=== PATIENT | female | born 1975 | race Caucasian/White ===

== ENCOUNTER 2020-01-07 14:29 | Outpatient (CLI) | payer OTHER, SELFPAY ==
--- NOTE | ~2020-01-07 | US_ITS ---
EXAMINATION: US right upper quadrant EXAM DATE: 01/07/2020 15:04 INDICATION: Right upper quadrant pain. TECHNIQUE: Multiple grayscale and Doppler images of the abdomen right upper quadrant were obtained (b y a technologist who performed the scan) and subsequently reviewed. There is no prior study for monique bartholomew. FINDINGS: The pancreatic head and body are normal in appearance. The pancreatic tail is not visualized. The l iver has normal echogenicity and contour. There are no focal liver lesions identified. There is no evidence of intrahepatic biliary duct dilation. Portal venous flow was seen in the hepatopedal, nor mal direction and has normal Doppler waveform. No right-sided hydronephrosis. Common bile duct measures 4 mm, which is normal. The gallbladder wall is normal in thickness, with ex pected amount of distention. No sonographic evidence of pericholecystic fluid. There is no cholelit hiases. Technologist performing exam reports patient did not demonstrate sonographic Wadsworth's sign. Please note that this sign is less reliable in patients who have received pain medication. IMPRESSION: Unremarkable abdominal ultrasound exam. Reviewed, dictated and finalized at location B.
== END 2020-01-07 14:30 | disposition home or self-care (01) ==
LOC: ANHIMG 14:33
PROVIDERS: PCP Family Medicine; Visit Provider Family Medicine
DX: R10.11 Right upper quadrant pain (principal)
CPT/HCPCS: 76705

== ENCOUNTER 2020-03-17 14:12 | Outpatient (CLI) | payer OTHER, SELFPAY ==
--- NOTE | ~2020-03-17 | MM_ITS ---
EXAMINATION: MM screening maura BI w joan HISTORY: Screening mammogram TECHNIQUE: Craniocaudal and mediolateral oblique 3-D tomosynthesis images were obtained and synthetic 2-D images were generated. CAD analysis was submitted and interpreted. COMPARISON: 10/11/2018, 07/11/2017, 09/27/2015 bilateral digital screening mammogram examinations BREAST PARENCHYMAL COMPOSITION: The breasts are heterogeneously dense, which may obscure small masses . FINDINGS: Scattered benign calcifications. There is no evidence of suspicious mass, calcification, or architectural distortion to suggest malignancy in either breast. There has been no suspicious interv al change. IMPRESSION: 1. No mammographic evidence of malignancy. 2. Recommend routine screening mammography in one year. BI-RADS Category 2: Benign finding(s). Reviewed, dictated and finalized at location A.
== END 2020-03-17 14:13 | disposition home or self-care (01) ==
LOC: ANHIMG 14:16
PROVIDERS: PCP Family Medicine; Visit Provider Advanced Practice Midwife
DX: Z12.31 Encounter for screening mammogram for malignant neoplasm of breast (principal)
CPT/HCPCS: 77063; 77067

== ENCOUNTER → 2021-01-27 14:13 | Outpatient (CLI) | payer OTHER, SELFPAY ==
--- NOTE | ~2021-01-27 | XR_ITS ---
EXAMINATION: XR lumbar spine 2-3V DATE: 01/27/2021 14:38 INDICATION: Back pain. TECHNIQUE: 3 views of lumbar spine were obtained. COMPARISON: Lumbar spine radiograph 06/09/2011 FINDINGS: There is 4 degrees dextrocurvature of lumbar spine. Vertebral body heights are normal. Ther e are changes of anterior fusion procedure at L5-S1 with interbody device and anterior plate and scre ws. Intervertebral disc heights are normal. There are small endplate osteophytes at most levels. Ther e is multilevel facet joint osteoarthritis, severe in lower lumbar spine. IMPRESSION: 1. Anterior fusion procedure at L5-S1. 2. Mild lumbar spondylosis. Reviewed, dictated and finalized at location A.
== END ==
PROVIDERS: PCP Student in an Organized Health Care Education/Training Program; Visit Provider Student in an Organized Health Care Education/Training Program
DX: Z98.1 Arthrodesis status (principal); M47.817 Spondylosis without myelopathy or radiculopathy, lumbosacral region
CPT/HCPCS: 72100

== ENCOUNTER → 2021-03-10 15:43 | Outpatient (CLI) | payer OTHER, SELFPAY ==
--- NOTE | ~2021-03-10 | MR_ITS ---
EXAMINATION: MR lumbar spine wo con DATE: 03/10/2021 16:12 INDICATION: Lumbar radiculopathy. TECHNIQUE: Magnetic resonance imaging (MRI) of the lumbar spine was performed without intravenous con trast. Sequences included sagittal T2-weighted FSE, sagittal STIR FSE, sagittal T1-weighted FSE, and axial T2-weighted FSE. COMPARISON: Lumbar spine MRI 03/24/2012 FINDINGS: There is 6 degrees levocurvature of lumbar spine. There are changes of anterior fusion proc edure at L5-S1 with discectomy, interbody device, and anterior plate and screws. There is mild chroni c anterior wedging of T12 vertebral body. There is mildly decreased disc height at T12-L1, L3-L4, and L4-L5. The distal spinal cord signal intensity is normal. The conus medullaris is at L1. The followi ng disc levels are specifically discussed: L1-L2: The disc does not extend beyond the endplate margin. There is mild bilateral facet joint osteo arthritis. There is no neural foraminal stenosis. There is no central canal stenosis. L2-L3: The disc is mildly bulging. There is mild right and moderate left facet joint osteoarthritis. There is no neural foraminal stenosis. There is mild central canal stenosis. L3-L4: The disc is bulging. There is mild bilateral facet joint osteoarthritis. There is mild bilater al neural foraminal stenosis. There is mild central canal stenosis. L4-L5: The disc is bulging and has an annular fissure. There is severe bilateral facet joint osteoart hritis. There is mild bilateral neural foraminal stenosis. There is mild central canal stenosis. L5-S1: There is moderate bilateral facet joint osteoarthritis. There is mild left neural foraminal st enosis. There is mild central canal stenosis. IMPRESSION: 1. Mild lumbar spondylosis. 2. Anterior fusion procedure at L5-S1. Reviewed, dictated and finalized at location B.
== END ==
PROVIDERS: PCP Student in an Organized Health Care Education/Training Program; Visit Provider Student in an Organized Health Care Education/Training Program
DX: M54.16 Radiculopathy, lumbar region (principal); M47.816 Spondylosis without myelopathy or radiculopathy, lumbar region; Z98.1 Arthrodesis status
CPT/HCPCS: 72148

== ENCOUNTER → 2021-07-05 13:46 | Outpatient (CLI) | payer OTHER, SELFPAY ==
--- NOTE | ~2021-07-05 | MM_ITS ---
EXAMINATION: MM screening maura BI w joan HISTORY: Screening mammogram TECHNIQUE: Craniocaudal and mediolateral oblique 3-D tomosynthesis images were obtained and synthetic 2-D images were generated. Bilateral rotated lateral cc views. CAD analysis was submitted and interp reted. COMPARISON: 03/17/2020, 10/11/2018, 07/11/2017 bilateral digital screening mammogram examinations BREAST PARENCHYMAL COMPOSITION: The breasts are heterogeneously dense, which may obscure small masses . FINDINGS: Scattered benign calcifications are again noted. There is no evidence of suspicious mass, c alcification, or architectural distortion to suggest malignancy in either breast. There has been no s uspicious interval change. IMPRESSION: 1. No mammographic evidence of malignancy. 2. Recommend routine screening mammography in one year. BI-RADS Category 2: Benign finding(s). Reviewed, dictated and finalized at location A.
== END ==
PROVIDERS: Visit Provider Advanced Practice Midwife
DX: Z12.31 Encounter for screening mammogram for malignant neoplasm of breast (principal)
CPT/HCPCS: 77063; 77067

== ENCOUNTER → 2022-10-11 16:18 | Outpatient (CLI) | payer OTHER, SELFPAY ==
--- NOTE | ~2022-10-11 | MM_ITS ---
EXAMINATION: MM screening maura BI w joan HISTORY: Screening TECHNIQUE: Craniocaudal and mediolateral oblique 3-D tomosynthesis images were obtained and synthetic 2-D images were generated. CAD analysis was submitted and interpreted. COMPARISON: No prior mammogram is available for comparison at this institution. BREAST PARENCHYMAL COMPOSITION: The breasts are heterogeneously dense, which may obscure small masses . FINDINGS: There are scattered benign-appearing calcifications. The left breast calcifications appear to layer on the MLO view. There is a cluster of indeterminate calcifications centrally in the right b reast on CC view. These are not confirmed on the MLO view. IMPRESSION: 1. Clustered indeterminate right breast calcifications centrally on CC view. 2. Additional mammographic views and possible breast ultrasound are recommended. BI-RADS Category 0: Incomplete: Needs additional imaging evaluation. Reviewed, dictated and finalized at location B. 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 Clustered indeterminate right breast calcifications centrally on CC view. 2. Additional mammographic views and possible breast ultrasound are recommended . BI-RADS Category 0: Incomplete: Needs additional imaging evaluation.
== END ==
PROVIDERS: Visit Provider Nurse Practitioner Obstetrics & Gynecology
DX: Z12.31 Encounter for screening mammogram for malignant neoplasm of breast (principal); R92.8 Other abnormal and inconclusive findings on diagnostic imaging of breast
CPT/HCPCS: 77063; 77067

== ENCOUNTER 2022-11-09 08:50 | Outpatient (CLI) | payer OTHER, SELFPAY ==
--- NOTE | ~2022-11-09 | MMUS_ITS ---
EXAMINATION: MM diagnostic mammo unilat RT, US breast RT complete HISTORY: Follow-up right breast calcifications TECHNIQUE: Additional 3-D tomosynthesis images of the right breast were performed and synthetic 2-D i mages were generated. CAD analysis was submitted and interpreted. High resolution complete right oriana st ultrasound was performed. COMPARISON: Comparison to multiple prior studies sequentially, with oldest reviewed study dated 08/31. BREAST PARENCHYMAL COMPOSITION: The breasts are heterogeneously dense, which may obscure small masses FINDINGS: MAMMOGRAPHIC FINDINGS: There are clustered indeterminate calcifications outer aspect of the right breast on spot cc view. Th oren do not appear to be clustered on medial lateral view. No discrete mass or architectural distortio n is identified in the right breast. ULTRASOUND: Complete US of all 4 quadrants of the right breast and retroareolar region was reviewed. At 8:00, 6 c m from the nipple there is an 8 mm simple cyst. At 6:00, 3 cm from the nipple, there is a 3 mm simple cyst. No suspicious sonographic abnormalities to suggest malignancy. IMPRESSION: 1. Probable benign right breast calcifications. 2. Recommend 6 month follow-up diagnostic right mammogram. BI-RADS category 3, probably benign findings. Reviewed, dictated and finalized at location A. 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 Probable benign right breast calcifications. 2. Recommend 6 month follow-up diagnostic right mammogram. BI-RADS category 3, probably benign findings.
== END 2022-11-09 08:51 ==
PROVIDERS: PCP Student in an Organized Health Care Education/Training Program; Visit Provider Nurse Practitioner Obstetrics & Gynecology
DX: R92.8 Other abnormal and inconclusive findings on diagnostic imaging of breast (principal)
CPT/HCPCS: 76641; 77065

== ENCOUNTER 2024-08-17 21:06 | Emergency (ER) | payer OTHER, SELFPAY ==
--- NOTE | ~2024-08-17 | XR_ITS ---
XR knee RT min 4V Ordering provider: Rajni Kaplan History: . fall, pain . Comparison: None. FINDINGS: BONES: No acute fracture or dislocation. JOINT SPACES: Normal. Marginal osteophytes are seen with cystic changes in the patella. SOFT TISSUES: Normal. IMPRESSION: No acute osseous abnormality right knee. Mild osteoarthritic changes. Reviewed, dictated and finalized at location A.
--- NOTE | ~2024-08-17 | CT_ITS ---
CT facial bones wo con Ordering provider: Rajni Kaplan History: . fall on face, pain . Comparison: None. Technique: Thin slice axial CT of the facial bones was performed without contrast. Coronal and sagit naren reformatted images were also obtained. . Automated exposure control and iterative reconstruction technique were employed. The dose-length product was 285.32 mGy-cm. FINDINGS: PARANASAL SINUSES: Mucosal thickening of the left sphenoid sinus. Cystic changes seen in the base of the right maxillary sinus which may indicate dentigerous cyst. BONES: No facial fracture including no nasal bone fracture. ORBITS AND SUPERFICIAL SOFT TISSUES: The optic globes and orbits are normal. Minimal soft tissue swel ling anterior to the right orbit. Minimal fat stranding anterior to the left zygomatic arch anteriorl y. Otherwise, The superficial soft tissues are normal. VISUALIZED MASTOIDS: Well aerated. LIMITED VISUALIZED BRAIN PARENCHYMA: Normal. IMPRESSION: No facial fracture. Reviewed, dictated and finalized at location A. IMPRESSION: No facial fracture.
--- NOTE | ~2024-08-17 | XR_ITS ---
XR knee LT min 4V Ordering provider: Rajni Kaplan MD History: . Fall, pain . Comparison: None. FINDINGS: BONES: No acute fracture or dislocation. JOINT SPACES: Cystic changes in the patella with marginal spurs.. SOFT TISSUES: Soft tissue swelling anterior to the patella. IMPRESSION: No acute osseous abnormality left knee. Mild osteoarthritic changes of the patellofemoral joint. Reviewed, dictated and finalized at location A.
--- NOTE | ~2024-08-17 | XR_ITS ---
XR shoulder LT min 2V Ordering provider: Rajni Kaplan History: . Fall, pain . Comparison: None. FINDINGS: BONES: No acute fracture or dislocation. Cystic changes in the greater tuberosity. JOINT SPACES: The acromioclavicular joint is normal. The glenohumeral joint is normal. SOFT TISSUES: Normal. IMPRESSION: No acute osseous abnormality left shoulder. Reviewed, dictated and finalized at location A.
[2024-08-17 21:16] VITALS: BP 132/86; PULSE 92; RESP 18; TEMP 36.6; O2SAT 100
--- NOTE | 2024-08-17 22:48 | ED.FALL ---
HPI - Fall General Chief Complaint: Fall Stated Complaint: FALL AT WORK Time Seen by Provider: 08/17/24 22:05 History of Present Illness HPI Narrative: Patient is a 49-year-old female who presents to the emergency department this evening status post an injury occurred at work. 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 Patient states that she follow-up forward 1st hitting her bilateral knees on the ground and her left shoulder than the left side of her face. Denies any loss of consciousness denies any blood thinner use. Patient was ambulatory after the scene and states that she has been walking and complains of mild soreness. No additional injuries or concerns at this time. Related Data Home Medications Medication Instructions Recorded Confirmed valacyclovir 1 gram tablet 1,000 mg PO DAILY PRN 01/07/20 04/01/20 (Valtrex) Allergies Allergy/AdvReac Type Severity Reaction Status Date / Time No Known Allergies Allergy Verified 08/17/24 21:19 Review of Systems Review of Systems: All systems are reviewed and are negative unless stated otherwise in the HPI. [facility] Past Medical History Medical History Anxiety with depression Essential (primary) hypertension Fusion of lumbar spine Recurrent genital herpes Surgical History Surgical History History of microdiscectomy L5-S1 - 2013 Family History Family History Grandparent Diabetes mellitus Mother Family history of malignant neoplasm of breast in first degree relative Hypertension Social History Social History Smoking status: Heavy tobacco smoker Second hand tobacco smoke exposure: Yes Additional smoking assessment comments: consumes about 15 cigarettes daily Alcohol intake: current Alcohol use details: consumes 2 or 3 mixed drinks a week Substance use: current Substance use type: does not use Exam Narrative: General: Alert, awake, afebrile, in no acute distress. HEENT: PERRL, no rhinorrhea, no post nasal drip, oropharynx clear. Cardiovascular: Regular rate and rhythm, no murmurs, rubs or gallops, no peripheral edema. Respiratory: Clear to auscultation bilaterally, no tachypnea, no wheezing, no rhonchi, no rubs, no respiratory distress. Abdomen: Soft, nontender, nondistended, no rebound, no guarding, no peritoneal signs. Musculoskeletal: No joint swelling or deformity, normal muscle tone, intact range of motion at all joints, intact bilateral hip flexions any extensions without any pain. Skin: No rashes or petechia, no signs of infection. Neurological: Alert and oriented to person, place, and time. Follows all commands. No focal deficits, speech is clear and fluent. Course Vital Signs Vital signs: Vital Signs Temperature 97.8 F 08/17/24 21:16 Pulse Rate 92 08/17/24 21:16 Respiratory Rate 18 08/17/24 21:16 Blood Pressure 132/86 08/17/24 21:16 Pulse Oximetry 100 08/17/24 21:16 Oxygen Delivery Room Air 08/17/24 21:16 Temperature 97.8 F 08/17/24 21:16 Pulse Rate 92 08/17/24 21:16 Respiratory Rate 18 08/17/24 21:16 Blood Pressure 132/86 08/17/24 21:16 Pulse Oximetry 100 08/17/24 21:16 Oxygen Delivery Room Air 08/17/24 21:16 MDM - Fall MDM Narrative Medical decision making narrative: The patient was evaluated by myself in the emergency department. History is obtained from patient who is an independent historian and physical exam was performed. External medical records were reviewed at this time. Patient was administered 15 mg of IM Toradol for pain. Imaging studies obtained included CT facial bones without IV contrast, left shoulder and bilateral knee x-rays which was independently interpret
[2024-08-17] MEDS: KETOROLAC 15 MG/ML VIAL (*BKC) IM (23:51)
[2024-08-18 00:07] VITALS: BP 139/79; PULSE 79; RESP 16; TEMP 36.6; O2SAT 97
== END 2024-08-18 00:09 | disposition home or self-care (01) ==
PROVIDERS: Emergency Provider Emergency Medicine; PCP Student in an Organized Health Care Education/Training Program
DX: S09.93XA Unspecified injury of face, initial encounter (principal); S89.92XA Unspecified injury of left lower leg, initial encounter; S89.91XA Unspecified injury of right lower leg, initial encounter; S49.92XA Unspecified injury of left shoulder and upper arm, initial encounter; F17.210 Nicotine dependence, cigarettes, uncomplicated; W03.XXXA Other fall on same level due to collision with another person, initial encounter
CPT/HCPCS: 70486; 73030; 73564; 96372; 99284; J1885

== ENCOUNTER 2025-05-27 12:47 | Outpatient (CLI) | payer OTHER, SELFPAY ==
--- NOTE | ~2025-05-27 | MM_ITS ---
EXAMINATION: MM screening maura BI w joan HISTORY: Screening TECHNIQUE: Craniocaudal and mediolateral oblique 3-D tomosynthesis images were obtained and synthetic 2-D images were generated. CAD analysis was submitted and interpreted. COMPARISON: Comparison to multiple prior studies sequentially, with oldest reviewed study dated 07/11. BREAST PARENCHYMAL COMPOSITION: Dense: The breasts are extremely dense, which lowers the sensitivity of mammography. FINDINGS: There is no evidence of suspicious mass, calcification, or architectural distortion to sugg est malignancy in either breast. There has been no suspicious interval change. IMPRESSION: 1. No mammographic evidence of malignancy. 2. Recommend routine screening mammography in one year. BI-RADS Category 1: Negative Reviewed, dictated and finalized at location B.
== END 2025-05-27 12:48 | disposition home or self-care (01) ==
LOC: MICIMG 12:47
PROVIDERS: PCP Student in an Organized Health Care Education/Training Program; Visit Provider Student in an Organized Health Care Education/Training Program
DX: Z12.31 Encounter for screening mammogram for malignant neoplasm of breast (principal)
CPT/HCPCS: 77063; 77067